=== PATIENT | male | born 1990 | race Caucasian/White ===

== ENCOUNTER → 2018-11-18 | Outpatient (CLI) | payer OTHER ==
[~2018-11-18] MED LIST: ALBIPROI INH; ALBU.083IS IH; ALBU90OI INH; AZIT250 PO; Augmentin 875-1 EACH PO; CEPH500 PO; Cipro500 MG PO; Ciprodex Otic7.5 ML LEFTEAR; DOXY100 PO; FLUSAL1005 IH; FLUSAL2505; FLUSAL5005 IH; HYDACE5 PO; IBUP800 PO; MONT10T PO; NEOPOLHCSU RIGHTEAR; PERIDEX15 ML MM; PRED20 PO; RXALBOI INH; Ultram50 MG PO; VARE1 PO
== END | disposition home or self-care (01) ==
LOC: LAB SHORT 10:40 → LAB EV 10:40
DX: H66.91 Otitis media, unspecified, right ear (principal)
CPT/HCPCS: 87070; 87147; 87205

== ENCOUNTER 2019-02-09 02:17 | Emergency (ER) | payer OTHER ==
[~2019-02-09] VITALS: Ht 170.2 cm; Wt 86.2 kg
[2019-02-09] MEDS ORDERED: Prednisone20 MG PO (02:52)
== END 2019-02-09 03:01 | disposition home or self-care (01) ==
LOC: ER 02:17
DX: J45.901 Unspecified asthma with (acute) exacerbation (principal); F17.210 Nicotine dependence, cigarettes, uncomplicated
CPT/HCPCS: 94640; 99283-25; J7512

== ENCOUNTER 2019-05-20 11:41 | Inpatient (IN) | payer SELFPAY ==
[~2019-05-20] VITALS: Ht 177.8 cm; Wt 76.1 kg
[~2019-05-20 11:41] MED LIST changes: +Prednisone20 MG PO
[2019-05-20 11:51] LABS: PCO2 Arterial 68.9 mmHg (35-45); PO2 Arterial 58.9 mmHg (80-100); pH Blood Arterial 7.25 (7.35-7.45)
[2019-05-20 11:57] LABS: BASOPHILS ABSOLUTE AUTO 0.06 K/mm3 (0.00-0.23); BASOPHILS PERCENT AUTO 0 % (0-2); EOSINOPHILS ABSOLUTE AUTO 0.24 K/mm3 (0.00-0.68); EOSINOPHILS PERCENT AUTO 1 % (0-6); Hematocrit 47.5 % (37.0-53.0); Hemoglobin 15.4 g/dL (13.5-17.5); IMMATURE GRAN ABSOLUTE AUTO 0.05 K/mm3 (0.00-0.10); IMMATURE GRAN PERCENT AUTO 0 % (0-1); LYMPHOCYTES ABSOLUTE AUTO 2.18 K/mm3 (0.84-5.20); LYMPHOCYTES PERCENT AUTO 13 % (21-46); MONOCYTES ABSOLUTE AUTO 0.87 K/mm3 (0.16-1.47); MONOCYTES PERCENT AUTO 5 % (4-13); Mean Corpuscular HGB 32.5 pg (26.0-34.0); Mean Corpuscular HGB Conc 32.4 g/dL (31.5-36.5); Mean Corpuscular Volume 100 fL (80-100); Mean Platelet Volume 9.3 fL (9.1-12.4); NEUTROPHILS ABSOLUTE AUTO 14.09 K/mm3 (1.96-9.15); NEUTROPHILS PERCENT AUTO 81 % (41-73); Platelet Count 494 K/mm3 (150-400); RDW Coefficient Variation 15.4 % (11.7-14.2); RDW Standard Deviation 56.4 fL (35.1-46.3); Red Blood Cell Count 4.74 M/mm3 (4.30-5.90); White Blood Cell Count 17.49 K/mm3 (4.00-11.30)
[2019-05-20 12:23] LABS: Alanine Aminotransfer (ALT/SGP 23 U/L (12-78); Albumin, Blood 4.1 g/dL (3.4-5.0); Alk Phos 100 U/L (50-136); Anion Gap 3 mmol/L (6-16); Aspartate Aminotrans (AST/SGOT 18 U/L (12-37); Bilirubin, Total 0.2 mg/dL (0.1-1.0); Blood Urea Nitrogen 14 mg/dL (8-24); CO2, Blood 33 mmol/L (21-32); Chloride, Blood 107 mmol/L (98-108); Creatinine, Blood 0.67 mg/dL (0.60-1.20); Globulin, Blood 4.3 g/dL (2.2-4.0); Glomerular Filtration Rate >60 (60-); Glucose, Blood 120 mg/dL (70-99); Potassium, Blood 4.7 mmol/L (3.5-5.5); Sodium, Blood 143 mmol/L (136-145); Total Protein, Blood 8.4 g/dL (6.4-8.2)
--- NOTE | 2019-05-20 14:00 | NUR ---
ARRIVAL TO UNIT Assumed care of pt upon arrival to unit at 1354. Pt arrived intubated, bagged by RT. Placed on ventilator AC 16, vT 450, PEEP 5, FiO2 45%; SpO2 97%. Pt arrived on 80 mcg/kg/min propofol. Pt agitated, pulling on restraints and trying to reach ET tube. Pt transferred from ED gurney to ICU bed with slider sheet and 6 staff. No visitors accompanied pt to unit. Per ED nurse, Bridgett, pt's mother is aware pt is here.
[2019-05-20 14:32] LABS: PCO2 Arterial 52.8 mmHg (35-45); PO2 Arterial 94.9 mmHg (80-100); pH Blood Arterial 7.31 (7.35-7.45)
--- NOTE | 2019-05-20 15:00 | NUR ---
CALL PLACED TO DR GARNICA AT 1435 Notified provider that pt is hypotensive. Orders received for 500 mL bolus of LR. Propofol titrated down to 65 mcg/kg/min. Dr Garnica aware. Goal to continue titrating propofol down, using ativan and fentanyl as needed.
--- NOTE | 2019-05-20 15:15 | NUR ---
CALL PLACED TO DR GARNICA AT 1510 Notified provider that hypotension persists. Order given for additional 1 L bolus of LR. Propofol titrated down to 55 mcg/kg/min.
--- NOTE | 2019-05-20 16:25 | NUR ---
DR MIKE AT BEDSIDE Discussed BP, sedation, and IV fluids. No new orders.
[2019-05-20 16:36] LABS: Source, Urine Catheter
[2019-05-20 16:48] LABS: Bilirubin, Urine Neg (Neg); Blood, Urine 2+ (Neg); Glucose Qualitative, Urine Neg (Neg); Ketones, Urine 1+ (Neg); Leukocyte Esterase, Urine 1+ (Neg); Nitrite, Urine Neg (Neg); Protein, Urine 2+ (Neg); Urobilinogen, Urine NORM (Normal)
[2019-05-20 16:58] LABS: Appearance, Urine Clear (Clear); Color, Urine Yellow (P-Yellow)
[2019-05-20 17:00] LABS: White Blood Cells, Urine 0-2 /hpf (0-5)
[2019-05-20 17:01] LABS: Squamous Epithelial Cells Not Seen /hpf (Few)
[2019-05-20 17:02] LABS: Bacteria Rare /hpf
--- NOTE | 2019-05-20 19:00 | NUR ---
ASSUMED CARE ASSUMED CARE OF PATIENT. INTUBATED- AC 16, TV 450, PEEP 5, FIO2 40%. RESP RATE 26-28. ETT 8.0, 25 @ THE UPPER LIP. SEDATED WITH PROPOFOL @ 50MCG/KG/MIN. OPENS EYES TO STIMULI. NODS/SHAKES HEAD APPROPRIATELY TO YES/NO QUESTIONS. FOLLOWS SIMPLE COMMANDS. IS ABLE TO WRITE NOTES TO COMMUNICATE NEEDS. OG TO LIS WITH SMALL AMOUNT OF CLEAR DRAINAGE. ALSO NOTED TO HAVE SCANT SMALL BLOOD CLOTS. EASTON PATENT AND DRAINING YELLOW URINE WITH SEDIMENT NOTED. PAS TO BLE. LR INFUSING @ 125CC/HR. BILATERAL SOFT WRIST RESTRAINTS IN PLACE TO PREVENT SELF-EXTUBATION. SEE SHIFT ASSESSMENT FOR FULL ASSESSMENT.
--- NOTE | 2019-05-20 19:08 | NUR ---
SUMMARY Pt remains on vent AC 16, vT 450, PEEP 5, FiO2 40%. Pt previously on 40 mcg/kg/min propofol. Pt woke up at 1815, calm and cooperative. Pt followed directions. Pt taken out of restraints. This RN educated pt about current condition, plan of care, and medical equipment. Pt nods head to indicate understanding. Pt provided with pen, paper, and communication chart. Pt writes concerns about his daughter being picked up from [employer]. Pt gives permission for staff to call his mother. Pt's mother called by Regi CARABALLO. Pt's mother states she will come visit pt and the pt's daughter will be picked up from [employer]. Update provided to pt. Pt requests staff calls his work, [employer], and tells him he cannot come to work. Unable to reach pt's place of employment. Pt uses commuication tools to ask "When will tube be taken out". Educated pt on treatment plan including steriods, IV antibiotics, and concerns about taking ET tube out too early. This RN educates pt on sedation and plan for pt to go back to sleep, at least until his mother arrives to unit. Pt nods head in agreeance. Proprofol increased to 50 mcg/kg/min. Ativan administered.
--- NOTE | 2019-05-20 19:30 | NUR ---
SED[place] MOM AND BROTHER ARE HERE TO VISIT AND WISH TO COMMUNICATE WITH HIM REGARDING HIS DAUGHTER. PROPOFOL DECREASED TO 10MCG/KG/MIN AT THIS TIME TO FACILITATE COMMUNICATION.
--- NOTE | 2019-05-20 19:53 | NUR ---
SEDATION FAMILY LEAVING AT THIS TIME. PROPOFOL RESTARTED AT 30MCG/KG/MIN.
[2019-05-21 03:38] LABS: BASOPHILS ABSOLUTE AUTO 0.02 K/mm3 (0.00-0.23); BASOPHILS PERCENT AUTO 0 % (0-2); EOSINOPHILS ABSOLUTE AUTO 0.01 K/mm3 (0.00-0.68); EOSINOPHILS PERCENT AUTO 0 % (0-6); Hematocrit 38.1 % (37.0-53.0); IMMATURE GRAN ABSOLUTE AUTO 0.05 K/mm3 (0.00-0.10); IMMATURE GRAN PERCENT AUTO 0 % (0-1); LYMPHOCYTES ABSOLUTE AUTO 0.56 K/mm3 (0.84-5.20); LYMPHOCYTES PERCENT AUTO 4 % (21-46); MONOCYTES ABSOLUTE AUTO 0.11 K/mm3 (0.16-1.47); MONOCYTES PERCENT AUTO 1 % (4-13); Mean Corpuscular HGB 32.7 pg (26.0-34.0); Mean Corpuscular HGB Conc 34.1 g/dL (31.5-36.5); Mean Platelet Volume 9.5 fL (9.1-12.4); NEUTROPHILS PERCENT AUTO 95 % (41-73); Platelet Count 389 K/mm3 (150-400); RDW Coefficient Variation 15.4 % (11.7-14.2); RDW Standard Deviation 52.9 fL (35.1-46.3); Red Blood Cell Count 3.97 M/mm3 (4.30-5.90); White Blood Cell Count 14.55 K/mm3 (4.00-11.30)
[2019-05-21 03:41] LABS: Mean Corpuscular Volume 96 fL (80-100)
[2019-05-21 03:55] LABS: Anion Gap 4 mmol/L (6-16); Blood Urea Nitrogen 14 mg/dL (8-24); Bun/Creatinine Ratio 22.1 (12.0-20.0); CO2, Blood 30 mmol/L (21-32); Calcium, Blood 8.6 mg/dL (8.5-10.1); Chloride, Blood 107 mmol/L (98-108); Creatinine, Blood 0.63 mg/dL (0.60-1.20); Glomerular Filtration Rate >60 (60-); Glucose, Blood 131 mg/dL (70-99); Magnesium, Blood 2.2 mg/dL (1.6-2.4); Phosphorus, Blood 2.8 mg/dL (2.5-4.9); Potassium, Blood 4.1 mmol/L (3.5-5.5); Sodium, Blood 141 mmol/L (136-145)
[2019-05-21 05:10] LABS: PCO2 Arterial 46.5 mmHg (35-45); PO2 Arterial 72.4 mmHg (80-100); pH Blood Arterial 7.41 (7.35-7.45)
--- NOTE | 2019-05-21 06:00 | NUR ---
SHIFT SUMMARY NO ACUTE CHANGES. REMAINS INTUBATED- AC 16, TV 450, PEEP 5, FIO2 40%. LUNGS WITH INSPIRATORY/EXPIRATORY WHEEZES T/O WITH EACH ASSESSMENT. RR 16-28. SEDATED WITH PROPOFOL BETWEEN 10-65MCG/KG/MIN DURING SHIFT- NOW INFUSING @ 60MCG/KG/MIN. MEDICATED WITH ATIVAN 2-4MG IV X 3 DOSES FOR INCREASED AGITATION DURING NOC. BILATERAL SOFT WRIST RESTRAINTS REMAIN IN PLACE. OG TO LIS WITH APPROXIMATELY 50CC PINK-TINGED DRAINAGE. EASTON PATENT AND DRAINING TO GRAVITY. LR INFUSING @ 125CC/HR PER ORDER. VSS.
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
--- NOTE | 2019-05-21 08:55 | NUR ---
DR. MIKE IN TO SEE PATIENT. INFORMED OF CULTURE RESULT FROM RIGHT EAR. INFORMED THAT PATIENT'S AGITATION AND ANXIETY HAS PROGRESSED THROUGHOUT NIGHT PER SUSTAINABLE DESIGN COORDINATOR RN. INFORMED THAT PRN FENTANYL HAS SEEMED TO HELP PATIENT'S COMFORT MORE THAN THE PRN ATIVAN HAS AT THIS TIME. NO ORDERS RECEIVED AT THIS TIME.
--- NOTE | 2019-05-21 09:11 | NUR ---
DR. GIBBS IN UNIT. INFORMED THAT, PER EDITOR IN CHIEF RN REPORT, PATIENT HAS BECOME MORE ANXIOUS AND AGITATED T/O THE NIGHT. INFORMED THAT PATIENT'S PROPOFOL INCREASED AND 8 MG PRN ATIVAN GIVEN DURING NIGHT. INFORMED THAT PATIENT GIVEN 2 MG PRN ATIVAN AND 25 MCG PRN FENTANYL IN ADDITION TO PROPOFOL THIS AM, FOR INCREASED AGITATION AND TRYING TO GRAB AT ETT. INFORMED THAT PRN FENTANYL HAS SEEMED TO HELP THE MOST THUS FAR. INFORMED OF R EAR CULTURE RESULTS. INFORMED THAT PATIENT'S MOTHER CALLED AND STATED SHE WILL BE IN AROUND NOON TO SEE PATIENT. NO ORDERS RECEIVED AT THIS TIME.
--- NOTE | 2019-05-21 09:57 | NUR ---
REPORT GIVEN TO ASSUMING NURSE, DIVYA DE LA ROSA.
--- NOTE | 2019-05-21 10:27 | NUR ---
ASSUMED CARE REPORT FROM ILYA BERMUDEZ. PATIENT INTUBATED, RESTRAINED, LUNG SOUNDS CLEAR THROUGHOUT
--- NOTE | 2019-05-21 12:15 | NUR ---
MOTHER STOPPED BY TO SEE PATIENT
[2019-05-21 13:14] LABS: U Amphetamine Screen Not Detected; U Barbituate Screen Not Detected; U Benzodiazapine Screen DETECTED; U Cannabinoids Screen DETECTED; U Cocaine Screen Not Detected; U Methadone Screen Not Detected; U Methamphetamine Screen Not Detected
[2019-05-21 13:15] LABS: U Buprenorphine Screen Not Detected; U Opiates Screen Not Detected; U Oxycodone Screen Not Detected; U Phencyclidine Screen Not Detected; U Propoxyphene Screen Not Detected
--- NOTE | 2019-05-21 14:28 | NUR ---
PATIENT WAS AWAKE WHILE MOTHER WAS IN ROOM. WHEN ASKED ABOUT PAIN, HE DENIED IT AND WROTE THAT HE DIDN'T WANT ANY MORE MEDS. HE WROTE THAT HE WANTED PIZZA. STARTED TUBE FEED AT 25 ML/HR INSTEAD.
--- NOTE | 2019-05-21 19:03 | NUR ---
REPORT GIVEN TO ILYA ESCALONA
--- NOTE | 2019-05-21 19:30 | NUR ---
[place] of Care: Patient sleeping, rouses spontaneously and easily to verbal stimuli. Able to nod head yes/no and write on paper to communicate needs. Intubated with 8.0 tube, 24cm at teeth. Ventilator set to pressure support of 5, PEEP-5, FiO2-5%. O2-94-96%, VSS. X1 prn fentanyl given shortly after shift change per c/o general pain/discomfort, good effect noted. Tube feed infusing Vital High-Protein at 25ml/hr with 30ml H2O flush Q4hr, Will increase feed rate to goal of 40ml/hr at 0000hr if no s/s of GI intolerance. Peripheral IV's x2 patent and intact. Paz cath patent and intact, draining light yellow clear urine. Will continue to monitor for pain, safety, comfort.
[2019-05-22 03:33] LABS: Bicarbonate Venous 29.3 mmol/L (24.0-30.0); PCO2 Venous 41.8 mmHg (38-42); PO2 Venous 155 mmHg (38-42); pH Blood Venous 7.46 (7.34-7.37)
[2019-05-22 03:38] LABS: BASOPHILS ABSOLUTE AUTO 0.01 K/mm3 (0.00-0.23); BASOPHILS PERCENT AUTO 0 % (0-2); EOSINOPHILS ABSOLUTE AUTO 0.02 K/mm3 (0.00-0.68); EOSINOPHILS PERCENT AUTO 0 % (0-6); Hematocrit 38.2 % (37.0-53.0); Hemoglobin 12.9 g/dL (13.5-17.5); IMMATURE GRAN ABSOLUTE AUTO 0.09 K/mm3 (0.00-0.10); IMMATURE GRAN PERCENT AUTO 1 % (0-1); LYMPHOCYTES PERCENT AUTO 3 % (21-46); MONOCYTES ABSOLUTE AUTO 0.32 K/mm3 (0.16-1.47); MONOCYTES PERCENT AUTO 2 % (4-13); Mean Corpuscular HGB 33.1 pg (26.0-34.0); Mean Corpuscular HGB Conc 33.8 g/dL (31.5-36.5); Mean Corpuscular Volume 98 fL (80-100); Mean Platelet Volume 9.6 fL (9.1-12.4); NEUTROPHILS ABSOLUTE AUTO 16.91 K/mm3 (1.96-9.15); NEUTROPHILS PERCENT AUTO 94 % (41-73); Platelet Count 400 K/mm3 (150-400); RDW Coefficient Variation 15.9 % (11.7-14.2); RDW Standard Deviation 56.9 fL (35.1-46.3); White Blood Cell Count 17.95 K/mm3 (4.00-11.30)
[2019-05-22 03:56] LABS: Anion Gap 2 mmol/L (6-16); Blood Urea Nitrogen 14 mg/dL (8-24); Bun/Creatinine Ratio 24.2 (12.0-20.0); CO2, Blood 31 mmol/L (21-32); Calcium, Blood 8.6 mg/dL (8.5-10.1); Chloride, Blood 106 mmol/L (98-108); Creatinine, Blood 0.58 mg/dL (0.60-1.20); Glomerular Filtration Rate >60 (60-); Glucose, Blood 119 mg/dL (70-99); Magnesium, Blood 2.6 mg/dL (1.6-2.4); Phosphorus, Blood 3.7 mg/dL (2.5-4.9); Potassium, Blood 4.2 mmol/L (3.5-5.5); Sodium, Blood 139 mmol/L (136-145)
--- NOTE | 2019-05-22 06:29 | NUR ---
Shift Summary: Patient slept well throughout shift, continues to rouse easily to verbal stimuli or wake spontaneously. Able to communicate needs without difficulty. X3 c/o pain/discomfort effectively managed with prn fentanyl. X1 dose prn ativan given with good effect for anxiety/restlessness. Propofol gtt decreased fro 60mcg to 45mcg/kg/min, effective to keep patient calm and allow him to sleep for majority of shift. Tolerated ventilator on pressure support-5, PEEP-5, FiO2 decreased from 60 to 40% throughout shift. VSS, O2-92-96%. Paz cath remains patent and intact, draining light yellow clear urine. Will continue to monitor until report to day shift RN.
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
--- NOTE | 2019-05-22 09:38 | NUR ---
PATIENT EXTUBATED BY RT. PATIENT SATTING 90% AND GREATER ON RA. PATIENT ALERT AND ORIENTED X 4. PATIENT CALM AND COOPERATIVE. PATIENT REORIENTED TO CALL LIGHT AND ROOM. WILL CONTINUE TO MONITOR.
--- NOTE | 2019-05-22 09:47 | NUR ---
PATIENT PLACED ON 2 L NC TO KEEP SATS 90% AND GREATER. WILL CONTINUE TO MONITOR.
[2019-05-22] MEDS ORDERED: ALBU90OI61 INH (10:06)
[2019-05-22] MEDS ORDERED: FLUT1DIS8 INH (10:12)
--- NOTE | 2019-05-22 10:36 | NUR ---
PATIENT INCREASED TO 4 L NC TO KEEP SATS 90% AND GREATER.
--- NOTE | 2019-05-22 11:16 | NUR ---
NC DECREASED TO 3 L, STILL SATTING 90% AND GREATER. WILL CONTINUE TO MONITOR.
--- NOTE | 2019-05-22 12:00 | NUR ---
PATIENT RESTING QUIETLY IN BED, WATCHING TV. PATIENT HAS NO COMPLAINTS AT THIS TIME. PATIENT ALERT AND ORIENTED X 4, AFEBRILE. PATIENT IS SLIGHTLY ANXIOUS IS WANTING TO LEAVE AND SMOKE. SCHEDULED NICOTINE PATCH ORDERED AND GIVEN. PATIENT IS COOPERATIVE AT THIS TIME. PATIENT SATTING 90% AND GREATER ON 3 L NC. LUNGS CLEAR T/O. PATIENT HAS OCCASIONAL, MOIST, NONPRODUCTIVE COUGH. PATIENT REMAINS IN NSR, HR IN THE 70S. BP STABLE. PATIENT HAS VOIDED SINCE EASTON REMOVAL INTO BEDSIDE URINAL. OT 20 MG IV LASIX GIVEN EARLIER. NO OTHER ACUTE CHANGES TO NOTE ON AT THIS TIME. WILL CONTINUE TO MONITOR.
--- NOTE | 2019-05-22 16:45 | NUR ---
PATIENT RESTING QUIETLY IN BED. PATIENT HAS NO COMPLAINTS. PATIENT AFEBRILE. FACE FLUSHED. PATIENT CONTINUES TO STATE HE WANTS TO GO OUT TO SMOKE. BEDSIDE SWALLOW EVAL PERFORMED BY NURSE AND PATIENT INCREASED TO REGULAR DIET TOLERATED WELL. PATIENT SATTING 90% AND GREATER ON RA. PATIENT IN SR, HR 80S TO 90S. BP STABLE. NO OTHER ACUTE CHANGES TO NOTE ON AT THIS TIME. PATIENT'S MOTHER IS HERE VISITING. WILL CONTINUE TO MONITOR.
--- NOTE | 2019-05-22 17:53 | NUR ---
SHIFT SUMMARY PATIENT INTUBATED AND ON PROPOFOL AT BEGINNING OF SHIFT. PATIENT COOPERATIVE AND FOLLOWING DIRECTIONS AT THAT TIME. PATIENT EXTUBATED AT 0940. PATIENT HAS REMAINED ALERT AND ORIENTED X 4, AFEBRILE. PATIENT HAS BEEN ANXIOUS TO LEAVE AND TO SMOKE A CIGARETTE, BUT HAS REMAINED CALM AND COOPERATIVE. NICOTINE PATCH ON PATIENT AND NURSE HAS EDUCATED ON HAZARDS OF CONTINUING SMOKING WITH HIS ASTHMA. PATIENT HAD ONE COMPLAINT OF PAIN THIS SHIFT IN THROAT THIS AM; PATIENT REPORTED RELIEF WITH PRN FENTANYL. PATIENT HAS HAD NO OTHER COMPLAINTS THIS SHIFT. PATIENT REPOSITIONING SELF SINCE EXTUBATED. PATIENT SATTING 90% AND GREATER ON RA TO 4 L NC. PATIENT CURRENTLY ON RA AND SATTING 94%. LUNGS HAVE REMAINED CLEAR T/O. PATIENT IS COUGHING UP MODERATE AMOUNT OF THICK, PALE YELLOW SPUTUM. PATIENT HAS REMAINED IN SR, HR 70S-90S. BP HAS REMAINED STABLE. PATIENT ON TF WHILE INTUBATED; PATIENT INCREASED TO REGULAR DIET THIS AFTERNOON AFTER BEDSIDE SWALLOW EVAL. PATIENT HAS NOT HAD BM SINCE BEFORE ADMIT. PATIENT OFFERED PRN SENOKOT BUT IS REFUSING AT THIS TIME. EASTON REMOVED AFTER EXTUBATED. 20 MG IV LASIX OT GIVEN THIS AM; PATIENT HAS BEEN VOIDING ADEQUATE AMOUNT OF YELLOW URINE INTO BEDSIDE URINAL. FACE IS FLUSHED. R EAR CONTINUES TO PRODUCE PURULENT DRAINAGE. NURSE TRIED TO CALL SHAFT TENDER TODAY; MESSAGE LEFT PATIENT CONCERNED ABOUT PAYING HOSPITAL BILLS AND GETTING NEEDED MEDICATION WITHOUT HAVING ANY CURRENT HEALTH INSURANCE. PATIENT'S MOTHER IN TODAY TO SEE HIM. MOTHER TALKED ABOUT SOME HEALTH INSURANCE OPTIONS THAT SHE HAD FOUND. PATIENT DOES NOT HAVE ANY COMPLAINTS AT THIS TIME. BED LOW, CALL LIGHT IN REACH. WILL CONTINUE TO MONITOR PATIENT FREQUENTLY UNTIL REPORT GIVEN TO ONCOMING FAMILY INDEPENDENCE CASE MANAGER NURSE SHORTLY.
--- NOTE | 2019-05-22 20:00 | NUR ---
PT RESTING IN BED. A/O X4. DENIES PAIN, N/V, AND SOB. PT HAS NO REQUESTS AND IS IN NO DISTRESS.
[2019-05-23 03:53] LABS: BASOPHILS ABSOLUTE AUTO 0.01 K/mm3 (0.00-0.23); BASOPHILS PERCENT AUTO 0 % (0-2); EOSINOPHILS ABSOLUTE AUTO 0.07 K/mm3 (0.00-0.68); EOSINOPHILS PERCENT AUTO 1 % (0-6); IMMATURE GRAN ABSOLUTE AUTO 0.08 K/mm3 (0.00-0.10); IMMATURE GRAN PERCENT AUTO 1 % (0-1); LYMPHOCYTES PERCENT AUTO 5 % (21-46); MONOCYTES ABSOLUTE AUTO 0.51 K/mm3 (0.16-1.47); MONOCYTES PERCENT AUTO 3 % (4-13); Mean Corpuscular HGB 33.2 pg (26.0-34.0); Mean Corpuscular HGB Conc 34.1 g/dL (31.5-36.5); Mean Corpuscular Volume 97 fL (80-100); Mean Platelet Volume 9.6 fL (9.1-12.4); NEUTROPHILS ABSOLUTE AUTO 13.32 K/mm3 (1.96-9.15); NEUTROPHILS PERCENT AUTO 90 % (41-73); Platelet Count 411 K/mm3 (150-400); RDW Coefficient Variation 15.6 % (11.7-14.2); Red Blood Cell Count 4.22 M/mm3 (4.30-5.90); White Blood Cell Count 14.79 K/mm3 (4.00-11.30)
[2019-05-23 04:16] LABS: Alanine Aminotransfer (ALT/SGP 65 U/L (12-78); Albumin, Blood 3.3 g/dL (3.4-5.0); Albumin/Globulin Ratio 0.8 (0.8-1.8); Alk Phos 77 U/L (50-136); Anion Gap 2 mmol/L (6-16); Aspartate Aminotrans (AST/SGOT 48 U/L (12-37); Bilirubin, Total 0.5 mg/dL (0.1-1.0); Blood Urea Nitrogen 27 mg/dL (8-24); Bun/Creatinine Ratio 42.1 (12.0-20.0); CO2, Blood 33 mmol/L (21-32); Calcium, Blood 9.1 mg/dL (8.5-10.1); Chloride, Blood 104 mmol/L (98-108); Creatinine, Blood 0.64 mg/dL (0.60-1.20); Globulin, Blood 3.9 g/dL (2.2-4.0); Glomerular Filtration Rate >60 (60-); Glucose, Blood 127 mg/dL (70-99); Magnesium, Blood 2.5 mg/dL (1.6-2.4); Phosphorus, Blood 3.6 mg/dL (2.5-4.9); Sodium, Blood 139 mmol/L (136-145); Total Protein, Blood 7.2 g/dL (6.4-8.2)
--- NOTE | 2019-05-23 06:11 | NUR ---
NO CHANGES THIS SHIFT. NO SIGN OF DISTRESS.
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
--- NOTE | 2019-05-23 08:42 | NUR ---
PATIENT OFFERED PRN SENOKOT. PATIENT REFUSES AT THIS TIME AND STATES "MAYBE THE COFFEE WILL HELP".
--- NOTE | 2019-05-23 09:32 | NUR ---
DR. GIBBS HAS BEEN IN TO SEE PATIENT. PATIENT HAS BEEN CHANGED TO MEDICAL FLOOR STATUS WITH NO TELE. PATIENT OFFERED SHOWER AND TO SET UP FOR ORAL AND AM CARE. PATIENT REFUSES POLITELY AT THIS TIME AND STATES "MAYBE SOMETIME LATER TODAY".
--- NOTE | 2019-05-23 12:24 | NUR ---
DR. NEFF IN TO SEE PATIENT.
--- NOTE | 2019-05-23 12:29 | NUR ---
PATIENT FINISHED LUNCH AND WATCHING TV IN BED. VS REMAIN STABLE. NO ACUTE CHANGES TO NOTE ON. PATIENT'S MOTHER IN SHORT TIME AGO TO VISIT. WILL CONTINUE TO MONITOR.
[2019-05-23] MEDS ORDERED: ALBU90OI INH (13:15)
[2019-05-23] MEDS ORDERED: CEFP200 PO (13:16)
[2019-05-23] MEDS ORDERED: Nicoderm Cq1 EAC1 TOP (13:16)
[2019-05-23] MEDS ORDERED: DELTASONE20 MG PO (13:17)
--- NOTE | 2019-05-23 13:35 | NUR ---
DISCHARGE INSTRUCTIONS PROVIDED TO PATIENT. PATIENT STATED THAT HE UNDERSTANDS DISCHARGE INSTRUCTIONS. PRESCRIPTIONS CALLED IN TO HIS PHARMACY AT THE [facility]. PATIENT JUST WAITING ON RIDE AND PLACE TO GO HIS MOTHER IS AT THE COAST WITH HIS DAUGHTER AND HAS HIS HOUSE KEYS. MASON DAO RN, TO TAKE OVER CARE WHILE THIS NURSE AT LUNCH.
--- NOTE | 2019-05-23 16:35 | NUR ---
SHIFT SUMMARY PATIENT REMAINED ALERT AND ORIENTED, AFEBRILE T/O SHIFT. PATIENT REMAINED COOPERATIVE AND PLEASANT. PATIENT DID NOT COMPLAIN OF ANY PAIN OR DISCOMFORT THIS SHIFT. PATIENT REMAINED SATTING 90% AND GREATER ON RA. PATIENT COUGHING UP MODERATE AMOUNT OF THICK, CLEAR SPUTUM TODAY PER PATIENT REPORT. PATIENT REMAINED IN SR. HR 60S TO 90S, BP STABLE. PATIENT DID NOT HAVE BM. PATIENT WAS OFFERED PRN SENOKOT BUT REFUSED. PATIENT TOLERATED REGULAR DIET WELL ALL T/O DAY. PATIENT HAD GOOD OUTPUT OF DARK YELLOW COLORED URINE. NO CHANGE IN SKIN. IVS REMOVED. PATIENT'S MOTHER ARRIVED; PATIENT TAKEN OUT IN WHEELCHAIR TO MOTHER'S CAR BY NURSE. PATIENT DISCHARGED.
== END 2019-05-23 16:35 | disposition home or self-care (01) | DRG 208 ==
LOC: ER 11:41 → ICUE 13:07 → ICUW 13:07 → ICUE 13:48
PROVIDERS: Internal Medicine; Internal Medicine Critical Care Medicine; Internal Medicine Pulmonary Disease; ADMIT Internal Medicine
PROC: 0BH18EZ Insertion of Endotracheal Airway into Trachea, Via Natural or Artificial Opening Endoscopic (ICD-10-PCS; principal; 2019-05-20)
PROC: 5A1945Z Respiratory Ventilation, 24-96 Consecutive Hours (ICD-10-PCS; 2019-05-20)
DX: J45.901 Unspecified asthma with (acute) exacerbation (principal); J96.01 Acute respiratory failure with hypoxia; J96.02 Acute respiratory failure with hypercapnia; F17.200 Nicotine dependence, unspecified, uncomplicated; J45.902 Unspecified asthma with status asthmaticus; T88.4XXA Failed or difficult intubation, initial encounter; R45.1 Restlessness and agitation; K21.9 Gastro-esophageal reflux disease without esophagitis; K08.9 Disorder of teeth and supporting structures, unspecified
CPT/HCPCS: 31500; 31575; 31720; 36415; 36600; 51702; 71045; 80048; 80053; 81001; 82330; 82803; 82947; 83735; 84100; 85025; 87070; 87086; 87147; 87205; 93005; 93010; 94002; 94003; 94640; 94644; 94645; 94760; 96365-59; 96375-59; 99291-25; 99292; C9113; G0480; J0696; J1100; J1650; J1940; J2060; J2250; J2704; J2930; J3010; J3475; J7050; J7120

== ENCOUNTER → 2019-06-08 | Outpatient (CLI) | payer SELFPAY ==
[~2019-06-08] MED LIST changes: +ALBU90OI61 INH; +CEFP200 PO; +DELTASONE20 MG PO; +FLUT1DIS8 INH; +Nicoderm Cq1 EAC1 TOP
== END | disposition home or self-care (01) ==
LOC: LAB SHORT 15:24 → LAB EV 15:24
DX: J45.901 Unspecified asthma with (acute) exacerbation (principal)
CPT/HCPCS: 87070; 87205